=== PATIENT | female | born 1980 | race American Indian/Alaskan Native ===

== ENCOUNTER 2018-05-02 07:03 | Emergency (ER) | payer MEDICAID ==
[2018-05-02 08:17] LABS: Alanine Aminotransferase 17 units/L (7-56); Albumin 3.7 g/dL (3.9-5); BUN/Creatinine Ratio 12; Blood Urea Nitrogen 7 mg/dL (7-17); Calcium 9.3 mg/dL (8.4-10.2); Hemolysis Index 85; Lipase 32 units/L (13-60)
[2018-05-02] MEDS ORDERED: ZOFRAN IM ONE (08:45)
--- NOTE | 2018-05-02 08:47 | Emergency Department Report ---
ED Abdominal Pain HPI - General Chief Complaint: Abdominal Pain Stated Complaint: ABD PAIN; N/V/D Time Seen by Provider: 05/02/18 08:40 Source: patient Mode of arrival: Ambulatory Limitations: No Limitations - History of Present Illness Initial Comments: Patient is a 37-year-old female with no significant past medical history. Patient presented to the ER complaining abdominal pain, crampy in nature associated with his nausea vomiting and diarrhea. Patient stated that her symptoms started 5 days ago with runny nose cough and congestion and then she started having the abdominal symptoms after that. Patient denied any bloody diarrhea or mucousy diarrhea. No fever. No other complaint. MD Complaint: abdominal pain -: days(s) Location: diffuse Radiation: none Migration to: no migration Severity: mild Severity scale (0 -10): 3 Quality: cramping Consistency: intermittent Associated Symptoms: nausea, vomiting, diarrhea - Related Data Allergies Allergy/AdvReac Type Severity Reaction Status Date / Time aspartame Allergy Unknown Verified 05/02/18 07:13 Penicillins Allergy Unknown Verified 05/02/18 07:13 ED Review of Systems ROS: Stated complaint: ABD PAIN; N/V/D Other details as noted in HPI Comment: All other systems reviewed and negative Constitutional: denies: chills, fever ENT: congestion Respiratory: cough Cardiovascular: denies: chest pain, palpitations Gastrointestinal: abdominal pain, nausea, vomiting, diarrhea. denies: constipation, hematemesis, melena, hematochezia Genitourinary: denies: urgency, dysuria, frequency, hematuria, discharge Neurological: denies: headache, weakness, numbness, paresthesias ED Past Medical Hx - Past Medical History Previous Medical History?: No - Surgical History Past Surgical History?: Yes Hx Cholecystectomy: Yes Additional Surgical History: x 3. cyst removed behind both knee caps. foreign object removed from head - Social History Smoking Status: Current Every Day Smoker Substance Use Type: Alcohol ED Physical Exam - General Limitations: No Limitations General appearance: alert, in no apparent distress - Head Head exam: Present: atraumatic, normocephalic, normal inspection - Eye Eye exam: Present: normal appearance - ENT ENT exam: Present: normal exam, normal orophraynx, mucous membranes moist - Neck Neck exam: Present: normal inspection, full ROM. Absent: tenderness, meningismus, lymphadenopathy - Respiratory Respiratory exam: Present: normal lung sounds bilaterally. Absent: respiratory distress, wheezes, rales, rhonchi, accessory muscle use, decreased breath sounds , prolonged expiratory - Cardiovascular Cardiovascular Exam: Present: regular rate, normal rhythm, normal heart sounds - GI/Abdominal GI/Abdominal exam: Present: soft, normal bowel sounds. Absent: distended, tenderness, guarding, rebound, rigid, organomegaly, mass, bruit, pulsatile mass , hernia - Extremities Exam Extremities exam: Present: normal inspection, full ROM, normal capillary refill - Back Exam Back exam: Present: normal inspection, full ROM. Absent: CVA tenderness (R), CVA tenderness (L), muscle spasm, paraspinal tenderness, vertebral tenderness, rash noted - Neurological Exam Neurological exam: Present: alert, oriented X3, CN II-XII intact, normal gait, reflexes normal - Skin Skin exam: Present: warm, intact, normal color ED Course Vital Signs 05/02/18 07:13 Temperature 97.7 F Pulse Rate 61 Respiratory 18 Rate Blood Pressure 109/72 O2 Sat by Pulse 97 Oximetry - Reevaluation(s) Reevaluation #1: 05/02/18 10:16 Patient stated that she is feeling much better. No nausea or vomiting. ED Medical Decision Making - Lab Data Result diagrams: 05/02/18 07:35 05/02/18 07:35 Critical care attestation.: If time is entered above; I have spent that time in minutes in the direct care of this critically ill patient, excluding procedure time. ED Disposition Clinical Impression: Abdominal pain, Viral syndrome Disposition: DC-01 TO HOME OR SELFCARE Is pt being admited?: No Condition: Stable Instructions: Abdominal Pain (ED), Gastroenteritis (ED) Referrals: PRIMARY CARE,MD [Primary Care Provider] - 3-5 Days
[2018-05-02 09:10] LABS: Hematocrit 44.4 % (30.3-42.9); Hemoglobin 14.6 gm/dl (10.1-14.3); Mean Corpuscular Volume 85 fl (79-97); Red Blood Count 5.22 M/mm3 (3.65-5.03)
[2018-05-02 09:11] LABS: Mean Corpuscular HGB Conc 33 % (30-34); Mean Corpuscular Hemoglobin 28 pg (28-32); Platelet Count 304 K/mm3 (140-440)
[2018-05-02 09:12] LABS: Basophils % (Auto) 1.2 % (0.0-1.8); Eosinophils % (Auto) 1.7 % (0.0-4.3); Lymphocytes % (Auto) 28.7 % (13.4-35.0); Monocytes % (Auto) 6.8 % (0.0-7.3)
[2018-05-02 09:13] LABS: Basophils # (Auto) 0.1 K/mm3 (0.0-0.1); Eosinophils # (Auto) 0.2 K/mm3 (0.0-0.4); Lymphocytes # (Auto) 3.2 K/mm3 (1.2-5.4); Monocytes # (Auto) 0.7 K/mm3 (0.0-0.8)
[2018-05-02 10:26] VITALS: BP 104/61
== END 2018-05-02 10:30 | disposition home or self-care (01) ==
LOC: ED 07:03
DX: B34.9 Viral infection, unspecified (principal); R10.84 Generalized abdominal pain; F17.200 Nicotine dependence, unspecified, uncomplicated; Z90.49 Acquired absence of other specified parts of digestive tract; Z88.0 Allergy status to penicillin; Z88.8 Allergy status to other drugs, medicaments and biological substances
CPT/HCPCS: 36415; 80053; 83690; 84703; 85025; 96372; 99283; J2405